=== PATIENT | male | born 1935 | race Caucasian/White ===

== ENCOUNTER → 2017-07-20 17:58 | Outpatient (CLI) | payer MEDICARE ==
[2016-09-11 15:36] VITALS: BMI 23.9
[~2017-07-20 17:58] MED LIST: ASPIRIN 81 MG E81 MG PO; BETAPACE 80 MG80 MG; BIMATOPROST2.5 ML EACH EYE; CRESTOR10 MG PO; CRESTOR5 MG PO; FLAGYL500 MG PO; FLORANEX / LACT1 TAB PO; FOLIC ACID1 MG PO; LIPITOR20 MG PO; LOPRESSOR25 MG PO; MOBIC7.5 MG PO; PLAVIX75 MG PO; PRILOSEC20 MG PO; PRINIVIL20 MG PO; RYTHMOL150 MG PO; TYLENOL PM1 TAB; VANCOMYCIN250 MG/51 PO
[2017-07-20 20:15] LABS: BASOPHILS 0.4 % (0-2); EOSINOPHILS 2.3 % (0-7); HEMATOCRIT 43.1 % (42.0-54.0); HEMOGLOBIN 14.6 g/dL (13.5-17.5); IMMATURE GRANULOCYTES 0.3 % (0-5); LYMPHOCYTES 25.4 % (15-50); MCHC 33.9 g/dL (31.0-37.0); MCV 94.5 fL (80.0-100.0); MEAN PLATELET VOLUME 10.6 fL (7.4-10.4); MONOCYTES 12.4 % (2-11); NEUTROPHILS 59.2 % (40-80); PLATELET COUNT 251 10x3/uL (130-400); RBC 4.56 10x6/uL (4.20-6.10); RDW 14.4 % (11.5-14.5)
[2017-07-20 20:41] LABS: CALC OSMOLALITY 267 mosm/kg (275-300); CALCIUM 9.1 mg/dL (8.5-10.1); CARBON DIOXIDE 27.9 mmol/L (21.0-32.0); CHLORIDE - SERUM 97 mmol/L (98-107); CREATININE - SERUM 0.9 mg/dL (0.6-1.3); GLUCOSE 91 mg/dL (74-106); POTASSIUM - SERUM 4.8 mmol/L (3.5-5.1); SODIUM 133 mmol/L (136-145); T4 THYROXIN - FREE 1.08 ng/dL (0.76-1.46); T4 THYROXINE 8.9 ug/dL (4.7-13.3); THYROID STIMULATING HORMONE 1.35 uIU/mL (0.36-3.74); UREA NITROGEN 18 mg/dL (7-18); eGFR NON AFRICAN AMERICAN 85 mL/min (90-120)
== END | disposition home or self-care (01) ==
LOC: D.LABREF 17:58
PROVIDERS: Family Medicine
DX: R42 Dizziness and giddiness (principal)

== ENCOUNTER → 2017-08-30 10:13 | Outpatient (CLI) | payer MEDICARE ==
[2016-09-11 15:36] VITALS: BMI 23.9
== END | disposition home or self-care (01) ==
LOC: D.CT 08-29 15:30
DX: I65.23 Occlusion and stenosis of bilateral carotid arteries (principal)

== ENCOUNTER 2017-12-06 17:22 | Observation (INO) | payer MEDICARE ==
[~2017-12-06] VITALS: Ht 172.7 cm; Wt 72.7 kg
--- NOTE | ~2017-12-06 | HP ---
PATIENT: JAMES BOYD MEDICAL RECORD: [id number] ACCOUNT: [id number] LOCATION:[address] : [birth year] ADMISSION DATE: 12/06/17 HISTORY AND PHYSICAL EXAMINATION HISTORY OF PRESENT ILLNESS: An 82-year-old male, presented to the ER with complaint of chest pain and pressure, blood pressure was elevated, warehouse picker is Dr. Carroll. His primary care physician is Dr. Pearson. He has a history of hypertension, pacemaker placement. CURRENT MEDICATIONS: Sotalol 80 mg b.i.d., omeprazole 20 mg daily, atorvastatin 20 mg daily, aspirin 81 mg daily, and Plavix 75 mg daily. ALLERGIES: ADHESIVE TAPE. REVIEW OF SYSTEMS: GENERAL: No acute change in weight or appetite. HEENT: No cephalgia, had transient vision loss with his elevated blood pressure, this resolved within minutes, this was unilateral and left field vision only, again complete resolution. No present symptoms. Denies dysphagia. CARDIOVASCULAR: Chest pain on presentation. No present symptoms. Of note, history of bypass surgery in 2013. PULMONARY: Denies hemoptysis. Denies night sweats. GASTROINTESTINAL: Denies hematemesis, hematochezia, or melena. GENITOURINARY: Denies dysuria. MUSCULOSKELETAL: No acute changes. ENDOCRINE: Denies polyuria, polydipsia, or polyphagia. PHYSICAL EXAMINATION: VITAL SIGNS: Temp 97.9, blood pressure 137/68, heart rate 62, respirations 16, and O2 sats 98% room air. On presentation to the ER, blood pressure was significantly elevated at 183/104. HEENT: Normocephalic, atraumatic. Eyes: Pupils are equal, round, reactive to light and accommodation. Extraocular muscles intact. Conjunctivae were not injected. Ears: Canals patent, TMs are intact. Nose: Nares patent without drainage. Throat: No erythema. No exudates. NECK: Supple. No lymphadenopathy. No JVD. HEART: Regular rate and rhythm. No S3, S4. No rub. LUNGS: Clear to auscultation bilaterally. Breathing is nonlabored. ABDOMEN: Soft, nontender. Bowel sounds all 4 quadrants. EXTREMITIES: Present times 4, no edema. NEUROLOGIC: Cranial nerves II-XII grossly intact. No focal deficits. SKIN: Warm and dry. No rash. IMAGING: Chest x-ray: Mild prominent interstitial markings bilaterally consistent with mild interstitial edema. CT of the head, chronic small vessel ischemic changes, no acute abnormalities. LABORATORY DATA: CBC: White count 8.8, hemoglobin 13.2, hematocrit 38.5, and platelets 194. Chemistry: Sodium 130, potassium 4.1, chloride 97, bicarbonate 27.3, BUN 15, creatinine 0.8, and glucose 103. AST 21, ALT 23, and alkaline phosphatase 85. CK 66, CK-MB of 1.0. Troponin less than 0.017. Cardiac enzymes have been negative times 2. EKG paced rhythm, rate of 70. ASSESSMENT AND PLAN: HISTORY AND PHYSICAL [id number] JAMES BOYD 1. Chest pain. Enzymes will be cycled times 3, thus far negative. We will also consult his warehouse picker, Dr. Carroll or coverage. 2. Hypertensive urgency. Resume home medications, presently normotensive. 3. Hyponatremia, cautious supplementation, restrict free water. Discharge planning when cleared by cardiology. TRANSINT:[id number] Voice Confirmation ID: [id number] DOCUMENT ID: [id number] YENI VILLALOBOS DO at 1511 CC: [id number] DICTATION DATE: 12/07/17 0811 SENIOR REGULATORY AFFAIRS SPECIALIST: 12/07/17 0854 DIS IN 12/07/17 [facility] [address] [place] [address]
[2017-12-06 18:11] LABS: BASOPHILS 0.7 % (0-2); EOSINOPHILS 3.3 % (0-7); HEMATOCRIT 41.5 % (42.0-54.0); HEMOGLOBIN 14.1 g/dL (13.5-17.5); IMMATURE GRANULOCYTES 0.1 % (0-5); LYMPHOCYTES 30.2 % (15-50); MCV 94.3 fL (80.0-100.0); MEAN PLATELET VOLUME 9.6 fL (7.4-10.4); MONOCYTES 12.5 % (2-11); NEUTROPHILS 53.2 % (40-80); PLATELET COUNT 223 10x3/uL (130-400); RDW 14.2 % (11.5-14.5); WBC 7.7 10x3/uL (4.8-10.8)
[2017-12-06 18:26] LABS: ALBUMIN 3.8 g/dL (3.4-5.0); ALKALINE PHOSPHATASE 94 U/L (46-116); ALT (SGPT) 23 U/L (10-68); BILIRUBIN - TOTAL 0.31 mg/dL (0.2-1.3); CALC OSMOLALITY 259 mosm/kg (275-300); CALCIUM 8.7 mg/dL (8.5-10.1); CARBON DIOXIDE 26.6 mmol/L (21.0-32.0); CHLORIDE - SERUM 94 mmol/L (98-107); CREATININE - SERUM 0.9 mg/dL (0.6-1.3); GLUCOSE 97 mg/dL (74-106); POTASSIUM - SERUM 4.3 mmol/L (3.5-5.1); PROTEIN - SERUM 7.4 g/dL (6.4-8.2); SODIUM 129 mmol/L (136-145); UREA NITROGEN 16 mg/dL (7-18); eGFR NON AFRICAN AMERICAN 85 mL/min (90-120)
[2017-12-06 18:37] LABS: CHOL - HDL RATIO 2.4 ratio (2.3-4.9); CHOLESTEROL, TOTAL 115 mg/dL (0-200); CKMB 1.2 U/L (0.0-3.6); CREATINE KINASE 91 UL (21-232); HDL CHOLESTEROL 49 mg/dL (32-96); LDL CHOLESTEROL 56 mg/dL (0-100); LDL-HDL RATIO 1.1 ratio (1.5-3.5); TRIGLYCERIDE 50 mg/dL (30-200)
[2017-12-06 18:38] LABS: TROPONIN-I < 0.017 ng/mL (0.000-0.060)
[2017-12-06 22:35] LABS: CKMB 1.1 U/L (0.0-3.6); CREATINE KINASE 73 UL (21-232); TROPONIN-I < 0.017 ng/mL (0.000-0.060)
[2017-12-07 03:10] VITALS: BP 157/75; Ht 172.7 cm; Wt 72.7 kg
[2017-12-07 04:00] VITALS: BP 137/68
[2017-12-07 04:06] LABS: BASOPHILS 0.3 % (0-2); EOSINOPHILS 2.5 % (0-7); HEMATOCRIT 38.5 % (42.0-54.0); HEMOGLOBIN 13.2 g/dL (13.5-17.5); IMMATURE GRANULOCYTES 0.1 % (0-5); LYMPHOCYTES 21.3 % (15-50); MCHC 34.3 g/dL (31.0-37.0); MCV 93.2 fL (80.0-100.0); MEAN PLATELET VOLUME 9.1 fL (7.4-10.4); MONOCYTES 13.3 % (2-11); NEUTROPHILS 62.5 % (40-80); PLATELET COUNT 194 10x3/uL (130-400); RBC 4.13 10x6/uL (4.20-6.10); WBC 8.8 10x3/uL (4.8-10.8)
[2017-12-07 04:31] LABS: ALBUMIN 3.4 g/dL (3.4-5.0); ALKALINE PHOSPHATASE 85 U/L (46-116); ALT (SGPT) 23 U/L (10-68); BILIRUBIN - TOTAL 0.57 mg/dL (0.2-1.3); CALC OSMOLALITY 261 mosm/kg (275-300); CALCIUM 8.9 mg/dL (8.5-10.1); CARBON DIOXIDE 27.3 mmol/L (21.0-32.0); CHLORIDE - SERUM 97 mmol/L (98-107); CREATINE KINASE 66 UL (21-232); CREATININE - SERUM 0.8 mg/dL (0.6-1.3); GLUCOSE 103 mg/dL (74-106); POTASSIUM - SERUM 4.1 mmol/L (3.5-5.1); PROTEIN - SERUM 6.6 g/dL (6.4-8.2); SODIUM 130 mmol/L (136-145); UREA NITROGEN 15 mg/dL (7-18); eGFR NON AFRICAN AMERICAN > 90 mL/min (90-120)
[2017-12-07 04:33] LABS: TROPONIN-I < 0.017 ng/mL (0.000-0.060)
[2017-12-07 07:30] VITALS: BP 167/77
[2017-12-07 09:44] LABS: CKMB 1.1 U/L (0.0-3.6); CREATINE KINASE 72 UL (21-232)
[2017-12-07 09:45] LABS: TROPONIN-I < 0.017 ng/mL (0.000-0.060)
[2017-12-07 13:03] VITALS: BP 129/67
== END 2017-12-07 14:17 | disposition home or self-care (01) ==
LOC: D.ER 17:22 → OBSVTIME 21:29 → D.EDHOLD 21:29 → D.M2 21:29
PROVIDERS: Emergency Medicine; Family Medicine
DX: I16.0 Hypertensive urgency (principal); R07.9 Chest pain, unspecified; E87.1 Hypo-osmolality and hyponatremia

== ENCOUNTER → 2017-12-17 17:18 | Outpatient (CLI) | payer MEDICARE ==
[2017-12-07 03:10] VITALS: BMI 24.3
[2017-12-17 18:23] LABS: % SATURATION 23 % (15-55); IRON 74 ug/dl (35-150); TOTAL IRON BIND CAPACITY 319 ug/dl (260-445); UNSAT IRON BIND CAPACITY 245 ug/dl (150-375)
[2017-12-17 18:36] LABS: T4 THYROXIN - FREE 0.97 ng/dL (0.76-1.46); THYROID STIMULATING HORMONE 1.28 uIU/mL (0.36-3.74)
== END | disposition home or self-care (01) ==
LOC: D.LABREF 17:18
PROVIDERS: Internal Medicine Cardiovascular Disease
DX: R20.8 Other disturbances of skin sensation (principal)

== ENCOUNTER 2018-09-25 17:59 | Inpatient (IN) | payer MEDICARE ==
[~2018-09-25] VITALS: Ht 172.7 cm; Wt 72.6 kg
[2018-09-25 18:31] LABS: BASOPHILS 0.4 % (0-2); EOSINOPHILS 4.2 % (0-7); HEMATOCRIT 34.2 % (42.0-54.0); HEMOGLOBIN 11.6 g/dL (13.5-17.5); IMMATURE GRANULOCYTES 0.5 % (0-5); LYMPHOCYTES 24.8 % (15-50); MCH 30.4 pg (26.0-34.0); MCHC 33.9 g/dL (31.0-37.0); MCV 89.8 fL (80.0-100.0); MEAN PLATELET VOLUME 9.2 fL (7.4-10.4); MONOCYTES 10.1 % (2-11); RBC 3.81 10x6/uL (4.20-6.10); RDW 16.5 % (11.5-14.5); WBC 8.3 10x3/uL (4.8-10.8)
[2018-09-25 18:35] LABS: PLATELET COUNT 280 10x3/uL (130-400)
[2018-09-25 18:39] LABS: INR 0.98 (0.85-1.17); PROTIME 12.5 SECONDS (11.6-15.0)
[2018-09-25 18:41] VITALS: BP 182/84
[2018-09-25 18:52] LABS: APPEARANCE TURBID (CLEAR); BILIRUBIN NEGATIVE (NEGATIVE); COLOR RED (YELLOW); GLUCOSE NEGATIVE (NEGATIVE); KETONE NEGATIVE (NEGATIVE); NITRITE NEGATIVE (NEGATIVE); PROTEIN TRACE mg/dL (NEGATIVE); UROBILINOGEN NORMAL (NORMAL)
[2018-09-25 18:53] LABS: RED CELLS - URINE >50 /hpf (0-5)
[2018-09-25 18:54] LABS: ALBUMIN 3.8 g/dL (3.4-5.0); ALKALINE PHOSPHATASE 105 U/L (46-116); ALT (SGPT) 31 U/L (10-68); BACTERIA FEW /hpf (NONE SEEN); BILIRUBIN - TOTAL 0.21 mg/dL (0.2-1.3); CALC OSMOLALITY 265 mosm/kg (275-300); CALCIUM 9.2 mg/dL (8.5-10.1); CARBON DIOXIDE 22.8 mmol/L (21.0-32.0); CHLORIDE - SERUM 96 mmol/L (98-107); CREATININE - SERUM 1.5 mg/dL (0.6-1.3); GLUCOSE 104 mg/dL (74-106); POTASSIUM - SERUM 4.2 mmol/L (3.5-5.1); PROTEIN - SERUM 7.9 g/dL (6.4-8.2); SODIUM 131 mmol/L (136-145); UREA NITROGEN 22 mg/dL (7-18); eGFR NON AFRICAN AMERICAN 47 mL/min (90-120)
[2018-09-25 19:00] VITALS: BP 141/76
[2018-09-25 19:06] LABS: CKMB 0.8 U/L (0.0-3.6); CREATINE KINASE 62 UL (21-232); TROPONIN-I < 0.017 ng/mL (0.000-0.060)
[2018-09-25 19:29] VITALS: BP 161/107
[2018-09-25 20:17] VITALS: BP 141/65
[2018-09-25 20:45] VITALS: BP 159/69
[2018-09-25 21:09] VITALS: BP 161/72
[2018-09-25] MEDS ORDERED: NORVASC5 MG PO (22:54)
[2018-09-25] MEDS ORDERED: TYLENOL PM1 TAB PO (23:04)
[2018-09-26] VITALS (8 sets, daily range): BP systolic 126–152; BP diastolic 43–76; Ht 172.7 cm; Wt 72.6 kg
[2018-09-26 11:07] LABS: BASOPHILS 0.5 % (0-2); EOSINOPHILS 3.5 % (0-7); HEMATOCRIT 31.6 % (42.0-54.0); HEMOGLOBIN 10.5 g/dL (13.5-17.5); IMMATURE GRANULOCYTES 0.5 % (0-5); LYMPHOCYTES 17.3 % (15-50); MCH 30.2 pg (26.0-34.0); MCHC 33.2 g/dL (31.0-37.0); MCV 90.8 fL (80.0-100.0); MEAN PLATELET VOLUME 8.9 fL (7.4-10.4); MONOCYTES 14.9 % (2-11); NEUTROPHILS 63.3 % (40-80); PLATELET COUNT 238 10x3/uL (130-400); RBC 3.48 10x6/uL (4.20-6.10); RDW 16.6 % (11.5-14.5); WBC 6.4 10x3/uL (4.8-10.8)
[2018-09-26 11:21] LABS: ALBUMIN 3.1 g/dL (3.4-5.0); ANION GAP 13.1 mmol/L (8-16); BILIRUBIN - TOTAL 0.3 mg/dL (0.2-1.3); CALCIUM 8.5 mg/dL (8.5-10.1); CARBON DIOXIDE 25.9 mmol/L (21.0-32.0); CREATININE - SERUM 1.6 mg/dL (0.6-1.3); PROTEIN - SERUM 6.7 g/dL (6.4-8.2)
[2018-09-27] VITALS: BP 116/44
[2018-09-27 05:23] VITALS: BP 140/86
[2018-09-27 06:34] LABS: BASOPHILS 0.6 % (0-2); EOSINOPHILS 3.3 % (0-7); HEMATOCRIT 31.7 % (42.0-54.0); HEMOGLOBIN 10.4 g/dL (13.5-17.5); IMMATURE GRANULOCYTES 0.6 % (0-5); LYMPHOCYTES 14.8 % (15-50); MCH 30.1 pg (26.0-34.0); MCHC 32.8 g/dL (31.0-37.0); MCV 91.6 fL (80.0-100.0); MEAN PLATELET VOLUME 9.1 fL (7.4-10.4); MONOCYTES 13.3 % (2-11); NEUTROPHILS 67.4 % (40-80); PLATELET COUNT 265 10x3/uL (130-400); RBC 3.46 10x6/uL (4.20-6.10); RDW 16.9 % (11.5-14.5); WBC 6.8 10x3/uL (4.8-10.8)
[2018-09-27 07:11] LABS: ALBUMIN 3.1 g/dL (3.4-5.0); ANION GAP 13.1 mmol/L (8-16); BILIRUBIN - TOTAL 0.33 mg/dL (0.2-1.3); CALCIUM 8.8 mg/dL (8.5-10.1); CARBON DIOXIDE 23.8 mmol/L (21.0-32.0); CREATININE - SERUM 1.6 mg/dL (0.6-1.3); POTASSIUM - SERUM 3.9 mmol/L (3.5-5.1); PROTEIN - SERUM 6.8 g/dL (6.4-8.2)
[2018-09-27 08:33] VITALS: BP 156/83
[2018-09-27] MEDS ORDERED: LEVAQUIN750 MG PO (11:45)
[2018-09-27] MEDS ORDERED: FLORAJEN3 CAPS460 MG PO (11:46)
[2018-09-27 12:05] VITALS: BP 156/81
--- NOTE | 2018-09-27 17:00 | MORECARE ---
CASE MANAGEMENT DISCHARGE SUMMARY PATIENT: JAMES BOYD UNIT: [id number] ADM DATE: 09/25/18 AGE: 83 : 33 SEX: M ROOM/BED: D.2134 AUTHOR: DAGODOC PHYSICIAN: REFERRING PHYSICIAN: VINCENZO WILLINGHAM MD DATE OF SERVICE: 09/27/18 Discharge Plan Patient Name: JAMES BOYD Facility: [facility]:[place] : 1935 Planned Disposition: Home Anticipated Discharge Date: 09/27/18 Discharge Date: 09/27/2018 Expected LOS: 2 Initial Reviewer: [email or web address] Initial Review Date: 09/27/2018 Generated: 09/27/18 5:59 pm Comments DCP- Discharge Planning Updated by [email or web address]: Dany Lucero on 09/27/18 3:[address] Patient Name: JAMES BOYD Admission Status: ER Accout number: [id number] Admission Date: 09-25-2018 : 1935 Admission Diagnosis:URINARY TRACT INFECTION, SITE NOT SPECIFIED Attending: VINCENZO BRANCH Current LOS: 2 Anticipated DC Date: 09-27-2018 Planned Disposition: Home Primary Insurance: [employer] PPO MCR [employer] Discharge Planning Comments: CM MET WITH PT AND SPOUSE IN ROOM TO DISCUSS DISCHARGE PLANNING AND NEEDS. JAMES BOYD provided verbal consent to discuss current and ongoing needs with/in the presence of: SPOUSE, MALLIKA. PT REPORTS LIVING AT HOME INDEPENDENTLY WITH SPOUSE. PT HAS NO MEDICAL EQUIPMENT AND NO OUTSIDE SERVICES ASSISTING IN THE HOME. CM DISCUSSED AVAILABILITY OF HOME HEALTH, REHAB SERVICES AND MEDICAL EQUIPMENT. PT DENIES DISCHARGE NEEDS, REPORTS HIS IS DRIVING HOME FOR DISCHARGE TODAY. IMPORTANT MESSAGE FROM MEDICARE PROVIDED AND EXPLAINED. INDUSTRIAL TRUCK MECHANIC NURSE NOTIFIED. Weapons Designer: Dany Lucero DCPIA - Discharge Planning Initial Assessment Updated by [email or web address]: Dany Lucero on 09/27/18 4:52 pm * Is the patient Alert and Oriented? Yes * How many steps to enter\exit or inside your home? NONE * PCP DR. YASEMIN GONZALEZ * Pharmacy [facility] * Preadmission Environment Home with Family * ADLs Independent * Equipment None * Other Equipment [facility] * List name and contact numbers for known caregivers / representatives who currently or will assist patient after discharge: MALLIKA BOYD, SPOUSE, * Verbal permission to speak to the caregivers and representatives has been obtained from the patient. Yes * Community resources currently utilized None * Please name any agencies selected above. NONE * Additional services required to return to the preadmission environment? No * Can the patient safely return to the preadmission environment? Yes * Has this patient been hospitalized within the prior 30 days at any hospital? No Coverage Notice Reviewer: [email or web address] Archana Lucero Notice Issued Date-Time: 09/27/2018 12:40 Notice Type: IM Discharge Notice Notice Delivered To: Patient Relationship to Patient: Instruction Dean Name: Delivery Method: HAND - Hand Delivered Elise Days: Prior Verbal Notification: Recipient Understood Notice: Yes Recipient Signature: Yes Med Rec Note Co-signed by Attending: Coverage Notice Comment: Patient Name: JAMES BOYD Page 02018 at 1700 All edits/amendments must be made on the electronic document DICTATION DATE: 09/27/181658 SCREEN WRITER: SIMA 09/27/181658 RPT#: [id number] DC DATE:09/27/18 STATUS: DIS IN [facility] [address] [place] [address] END OF REPORT
== END 2018-09-27 14:41 | disposition home or self-care (01) | DRG 689 ==
LOC: D.ER 17:59 → D.M2 20:53 → D.EDHOLD 20:53 → D.M2 21:38
PROVIDERS: Family Medicine; ADMIT Family Medicine
DX: N39.0 Urinary tract infection, site not specified (principal); G93.41 Metabolic encephalopathy; E87.1 Hypo-osmolality and hyponatremia; N17.9 Acute kidney failure, unspecified; I10 Essential (primary) hypertension; Z95.0 Presence of cardiac pacemaker; M19.90 Unspecified osteoarthritis, unspecified site